=== PATIENT | female | born 1955 | race Caucasian/White ===

== ENCOUNTER 2017-02-03 15:33 | Emergency (ER) | payer BC ==
[~2017-02-03 15:33] MED LIST: AMLO10TA80 PO; ATOR40TA70 PO; ERGO500013 PO; ESOM20CA PO; FOLI-43 PO; GLIP5TAB12 PO; MULT-1146 PO; PANT40TA4 PO
== END 2017-02-03 16:19 | disposition left against medical advice (07) ==
LOC: ER 16:19
DX: Z53.21 Procedure and treatment not carried out due to patient leaving prior to being seen by health care provider (principal)